=== PATIENT | male | born 1930 ===

== ENCOUNTER 2017-01-05 07:35 | Day surgery (SDC) | payer MEDICARE, OTHER ==
[2017-01-05 08:27] LABS: *BILIRUBIN,URIN NEGATIVE (NEGATIVE); *BLOOD, URINE NEGATIVE (NEGATIVE); *CLARITY,URINE CLEAR (CLEAR); *COLOR,URINE YELLOW (YELLOW); *KETONES,URINE NEGATIVE (NEGATIVE); *PROTEIN,URINE NEGATIVE (NEGATIVE); *UROBILINOGEN,URINE 0.2 E.U./dl (NORMAL); BASOPHILS % (AUTO) 0.7 % (0.0-2.0); EOSINOPHILS % (AUTO) 0.4 % (0.0-7.0); HEMOGLOBIN 11.4 G/DL (14.0-18.0); LEUKOCYTE ESTERASE ,URINE NEGATIVE (NEGATIVE); LYMPHOCYTES # (AUTO) 2.3 K/UL (0.8-4.8); LYMPHOCYTES % (AUTO) 34.9 % (20.5-51.5); MEAN CORPUSCULAR HEMOGLOBIN 31.3 UUG (27.0-31.0); MEAN CORPUSCULAR HGB CONC 34 g/dL (32.0-37.0); MEAN CORPUSCULAR VOLUME 90.9 FL (82.0-92.0); MONOCYTES # (AUTO) 0.4 K/UL (0.1-1.30); MONOCYTES % (AUTO) 6.9 % (0.0-11.0); NEUTROPHILS # (AUTO) 3.8 K/UL (1.8-8.9); NEUTROPHILS % (AUTO) 57.1 % (38.5-71.5); NITRITE, URINE NEGATIVE (NEGATIVE); PH,URINE 6.5 (5.0-8.0); PLATELET COUNT (AUTO) 186 K/UL (150-450); RED BLOOD CELL COUNT(AUTO) 3.63 MIL/UL (4.7-6.1); UGLUCOSE NEGATIVE (NEGATIVE); WHITE BLOOD COUNT (AUTO) 6.5 K/UL (4.0-11.2)
[2017-01-05 08:35] LABS: CALCIUM 9.3 mg/dL (8.5-10.1); POTASSIUM 4.1 mmol/L (3.5-5.1)
[2017-01-05 08:36] LABS: CREATININE 1.5 mg/dL (0.6-1.3)
[2017-01-05 08:42] LABS: BACTERIA,URINE NONE SEEN /HPF (NONE SEEN); RBC,URINE 0-3 /HPF (0-3); SQUAMOUS EPITHELIAL CELL,UR FEW /HPF (NONE SEEN); WBC,URINE 0-3 /HPF (0-3)
[2017-01-05] MEDS ORDERED: LIDOCAINE-MPF 2% 5 ML VIAL ONE (10:17)
[2017-01-05] MEDS ORDERED: EPINEPHRINE 1 MG/1 ML AMP ONE (10:18)
[2017-01-05] MEDS ORDERED: FENTANYL CITRATE 100 MCG/2 ML AMPUL ONE (11:15)
[2017-01-05] MEDS ORDERED: LIDOCAINE 2%-EPI 1:100,000 20 ML VIAL ONE (11:38)
[2017-01-05] MEDS ORDERED: BUPIVACAINE/EPI PF 0.5% 10 ML VIAL ONE (11:38)
[2017-01-05] MEDS ORDERED: NEO/POLYMYX B/DEXAME OPHT OINT 3.5 GM TUBE ONE (12:00)
[2017-01-05] MEDS ORDERED: PROPOFOL 200 MG/20 ML BOTTLE IV ONE (15:16)
[2017-01-05] MEDS ORDERED: IV LACTATED RINGERS SOLUTION 1,000 ML BAG IV ONE (15:16)
== END 2017-01-05 13:23 | disposition home or self-care (01) ==
LOC: DS 07:35
PROVIDERS: ATTEND Dermatology MOHS-Micrographic Surgery
DX: M31.6 Other giant cell arteritis (principal)
CPT/HCPCS: 36415; 71010; 85025; 85730; 93005; A4663; J0171; J3010; J3490; J7120